=== PATIENT | male | born 1975 | race Caucasian/White ===

== ENCOUNTER 2018-01-20 11:28 | Emergency (ER) | payer OTHER ==
[~2018-01-20] VITALS: Ht 165.1 cm; Wt 95.2 kg
[~2018-01-20 11:28] MED LIST: ATEN25 PO; CEPH500 PO; FAMO20 PO; HYDACE5 PO
[2018-01-20] MEDS ORDERED: METO50ER PO (12:17)
[2018-01-20] MEDS ORDERED: Naprosyn500 MG PO (12:53)
== END 2018-01-20 13:09 | disposition home or self-care (01) ==
LOC: ER 11:28
DX: M54.9 Dorsalgia, unspecified (principal); Z79.899 Other long term (current) drug therapy; Z79.1 Long term (current) use of non-steroidal anti-inflammatories (NSAID); V59.9XXA Occupant (driver) (passenger) of pick-up truck or van injured in unspecified traffic accident, initial encounter; Y92.481 Parking lot as the place of occurrence of the external cause
CPT/HCPCS: 96372; 99283; J1885

== ENCOUNTER 2018-12-07 09:54 | Day surgery (SDC) | payer OTHER ==
[~2018-12-07] VITALS: Ht 165.1 cm; Wt 91.6 kg
[~2018-12-07 09:54] MED LIST changes: +METO50ER PO; +Naprosyn500 MG PO; +SERT50 PO
--- NOTE | 2018-12-07 10:24 | NUR ---
12/07/18 Carrol Aguila MONITOR INTACT WITH CONTINUOUS PULSE OXIMETRY AND INTERMITTENT BP. PATIENT CONFIRMS NPO STATUS AND AGREES WITH SCHEDULED PROCEDURE. History, Chart, Medications and Allergies reviewed before start of procedure. O2 VIA N/C INTACT THROUGHOUT SEDATION/PROCEDURE. 3-LEAD EKG REVIEWED WITH PHYSICIAN PRIOR TO START OF PROCEDURE. PATIENT DETERMINED TO BE ASA APPROPRIATE FOR PROPOFOL SEDATION PRIOR TO START OF PROCEDURE BY DR. GARSIA. HURRICAINE SPRAY TO OROPHARYX. Bite Block Placed.
--- NOTE | 2018-12-07 11:27 | NUR ---
PT TOLERATED PO FLUIDS. RX FOR OMEPROZOLE CALLED TO [facility]. ATTEMPTING TO CONTACT PT RIDE HOME. REVIEWED DC INSTRUCTIONS. IV DC'D INTACT.
== END 2018-12-07 22:42 | disposition home or self-care (01) ==
LOC: ORSCMMR 09:54 → ORD 11:00 → ORSCMMR 11:00
PROVIDERS: Internal Medicine Gastroenterology
PROC: 0DB58ZX Excision of Esophagus, Via Natural or Artificial Opening Endoscopic, Diagnostic (ICD-10-PCS; principal; 2018-12-07 11:00)
PROC: 0DB68ZX Excision of Stomach, Via Natural or Artificial Opening Endoscopic, Diagnostic (ICD-10-PCS; principal; 2018-12-07 11:00)
PROC: 0DB48ZX Excision of Esophagogastric Junction, Via Natural or Artificial Opening Endoscopic, Diagnostic (ICD-10-PCS; principal; 2018-12-07 11:00)
DX: R13.14 Dysphagia, pharyngoesophageal phase (principal); K21.9 Gastro-esophageal reflux disease without esophagitis; K22.10 Ulcer of esophagus without bleeding; K44.9 Diaphragmatic hernia without obstruction or gangrene; F32.9 Major depressive disorder, single episode, unspecified; Z79.899 Other long term (current) drug therapy
CPT/HCPCS: 88305; 88342; J7120

== ENCOUNTER → 2019-09-01 | Outpatient (CLI) | payer OTHER ==
[2019-09-01 14:24] LABS: Anion Gap 6 mmol/L (6-16); Blood Urea Nitrogen 17 mg/dL (8-24); Bun/Creatinine Ratio 21.1 (12.0-20.0); CO2, Blood 25 mmol/L (21-32); Chloride, Blood 110 mmol/L (98-108); Creatinine, Blood 0.81 mg/dL (0.60-1.20); Glomerular Filtration Rate >60 (60-); Glucose, Blood 115 mg/dL (70-99); Potassium, Blood 3.9 mmol/L (3.5-5.5); Sodium, Blood 141 mmol/L (136-145)
== END | disposition home or self-care (01) ==
LOC: LAB 11:00 → LAB SHORT 11:00 → LAB FUT 08-30 17:30 → EDSTATUS 08-30 17:30
PROVIDERS: Physician Assistant
DX: I10 Essential (primary) hypertension (principal)
CPT/HCPCS: 80048

== ENCOUNTER 2020-05-29 20:46 | Emergency (ER) | payer OTHER ==
[~2020-05-29] VITALS: Ht 165.1 cm; Wt 95.7 kg
[2020-05-29] MEDS ORDERED: Keflex500 MG PO (21:10)
== END 2020-05-29 21:45 | disposition home or self-care (01) ==
LOC: ER 20:46
DX: L03.116 Cellulitis of left lower limb (principal); Z79.899 Other long term (current) drug therapy
CPT/HCPCS: 90471; 90714; 99282-25; A9270-GY

== ENCOUNTER 2020-07-31 00:27 | Day surgery (SDC) | payer OTHER ==
[~2020-07-31 00:27] MED LIST changes: +Keflex500 MG PO
== END 2020-07-31 23:22 | disposition home or self-care (01) ==
LOC: WOUND 00:27
DX: L97.821 Non-pressure chronic ulcer of other part of left lower leg limited to breakdown of skin (principal)
CPT/HCPCS: G0463

== ENCOUNTER 2020-08-10 00:16 | Day surgery (SDC) | payer OTHER | END 2020-08-10 22:55 | disposition home or self-care (01) | LOC: WOUND 00:16 | DX: L97.821 Non-pressure chronic ulcer of other part of left lower leg limited to breakdown of skin (principal) | CPT/HCPCS: G0463 ==

== ENCOUNTER 2021-01-24 18:23 | Emergency (ER) | payer OTHER ==
[~2021-01-24] VITALS: Ht 165.1 cm; Wt 95.2 kg
[2021-01-24 18:58] LABS: BASOPHILS ABSOLUTE AUTO 0.05 K/mm3 (0.00-0.23); BASOPHILS PERCENT AUTO 0 % (0-2); EOSINOPHILS ABSOLUTE AUTO 0.19 K/mm3 (0.00-0.68); EOSINOPHILS PERCENT AUTO 2 % (0-6); Hematocrit 46.1 % (37.0-53.0); Hemoglobin 15.6 g/dL (13.5-17.5); IMMATURE GRAN ABSOLUTE AUTO 0.04 K/mm3 (0.00-0.10); IMMATURE GRAN PERCENT AUTO 0 % (0-1); LYMPHOCYTES ABSOLUTE AUTO 2.55 K/mm3 (0.84-5.20); LYMPHOCYTES PERCENT AUTO 22 % (21-46); MONOCYTES ABSOLUTE AUTO 0.84 K/mm3 (0.16-1.47); MONOCYTES PERCENT AUTO 7 % (4-13); Mean Corpuscular HGB 29.9 pg (26.0-34.0); Mean Corpuscular HGB Conc 33.8 g/dL (31.5-36.5); Mean Corpuscular Volume 89 fL (80-100); Mean Platelet Volume 10.5 fL (9.1-12.4); NEUTROPHILS ABSOLUTE AUTO 7.89 K/mm3 (1.96-9.15); NEUTROPHILS PERCENT AUTO 68 % (41-73); Platelet Count 241 K/mm3 (150-400); RDW Coefficient Variation 12.4 % (11.7-14.2); RDW Standard Deviation 40.3 fL (35.1-46.3); Red Blood Cell Count 5.21 M/mm3 (4.30-5.90); White Blood Cell Count 11.56 K/mm3 (4.00-11.30)
[2021-01-24 19:17] LABS: Alanine Aminotransfer (ALT/SGP 37 U/L (12-78); Alk Phos 82 U/L (50-136); Anion Gap 6 mmol/L (6-16); Aspartate Aminotrans (AST/SGOT 23 U/L (12-37); Bilirubin, Total 0.6 mg/dL (0.1-1.0); Blood Urea Nitrogen 23 mg/dL (8-24); Bun/Creatinine Ratio 21.9 (12.0-20.0); CO2, Blood 24 mmol/L (21-32); Chloride, Blood 110 mmol/L (98-108); Creatinine, Blood 1.05 mg/dL (0.60-1.20); Glomerular Filtration Rate >60 (60-); Glucose, Blood 107 mg/dL (70-99); Potassium, Blood 3.7 mmol/L (3.5-5.5); Sodium, Blood 140 mmol/L (136-145)
[2021-01-24] MEDS ORDERED: LOSA25 PO (22:32)
[2021-01-25 00:28] LABS: Troponin I <0.015 ng/mL (0.000-0.040)
[2021-01-25] MEDS ORDERED: AMOCLA875 PO (01:30)
== END 2021-01-25 02:07 | disposition home or self-care (01) ==
LOC: ER 18:23
PROVIDERS: Physician Assistant
DX: J18.9 Pneumonia, unspecified organism (principal); I10 Essential (primary) hypertension; Z79.899 Other long term (current) drug therapy
CPT/HCPCS: 36415; 71045; 80053; 84484; 85025; 93005; 93010; 99285-25; A9270

== ENCOUNTER → 2023-02-19 | Outpatient (CLI) | payer OTHER ==
[~2023-02-19] MED LIST changes: +AMOCLA875 PO; +LOSA25 PO
[2023-02-19 09:51] LABS: Hematocrit 38.1 % (37.0-53.0); Hemoglobin 13.5 g/dL (13.5-17.5); Mean Corpuscular HGB 33.3 pg (26.0-34.0); Mean Corpuscular HGB Conc 35.4 g/dL (31.5-36.5); Mean Corpuscular Volume 94 fL (80-100); RDW Coefficient Variation 12.7 % (11.7-14.2); RDW Standard Deviation 43.9 fL (35.1-46.3); Red Blood Cell Count 4.06 M/mm3 (4.30-5.90); White Blood Cell Count 4.04 K/mm3 (4.00-11.30)
[2023-02-19 10:03] LABS: Albumin, Blood 3.4 g/dL (3.4-5.0); Albumin/Globulin Ratio 0.9 (0.8-1.8); Bilirubin, Total 0.3 mg/dL (0.1-1.0); Bun/Creatinine Ratio 22.7 (12.0-20.0); Calcium, Blood 8.9 mg/dL (8.5-10.1); Creatinine, Blood 0.97 mg/dL (0.60-1.20); Globulin, Blood 3.9 g/dL (2.2-4.0); Potassium, Blood 4.1 mmol/L (3.5-5.5); Total Protein, Blood 7.3 g/dL (6.4-8.2)
[2023-02-19 10:43] LABS: Mean Platelet Volume 9.9 fL (9.1-12.4); Platelet Count 123 K/mm3 (150-400)
[2023-02-19 10:51] LABS: BASOPHILS PERCENT MAN 0 % (0-2); EOSINOPHILS ABSOLUTE MAN 0.28 K/mm3 (0.00-0.68); EOSINOPHILS PERCENT MAN 7 % (0-6); LYMPHOCYTES ABSOLUTE MAN 0.32 K/mm3 (0.84-5.20); LYMPHOCYTES PERCENT MAN 8 % (21-46); MONOCYTES ABSOLUTE MAN 0.44 K/mm3 (0.16-1.47); MONOCYTES PERCENT MAN 11 % (4-13); MYELOCYTE ABSOLUTE MAN 0.04 K/mm3 (0.00-0.00); MYELOCYTE PERCENT MAN 1 % (0-0); NEUTROPHILS ABSOLUTE MAN 2.94 K/mm3 (1.96-9.15); SEG NEUTROPHILS PERCENT MAN 73 % (41-73); TOTAL CELLS COUNTED 100
== END | disposition home or self-care (01) ==
LOC: LAB SHORT 09:46
PROVIDERS: Chiropractor
DX: R10.13 Epigastric pain (principal)
CPT/HCPCS: 80053; 83690; 85025

== ENCOUNTER → 2023-06-26 | Outpatient (CLI) | payer OTHER ==
[~2023-06-26] MED LIST changes: +ALBU90OI; +FLUT1DIS5 INH; +TIOT18 INH
[2023-06-26 09:34] LABS: BASOPHILS ABSOLUTE AUTO 0.06 K/mm3 (0.00-0.23); BASOPHILS PERCENT AUTO 1 % (0-2); EOSINOPHILS ABSOLUTE AUTO 0.26 K/mm3 (0.00-0.68); EOSINOPHILS PERCENT AUTO 4 % (0-6); Hematocrit 39.8 % (37.0-53.0); Hemoglobin 13.3 g/dL (13.5-17.5); IMMATURE GRAN ABSOLUTE AUTO 0.06 K/mm3 (0.00-0.10); IMMATURE GRAN PERCENT AUTO 1 % (0-1); LYMPHOCYTES ABSOLUTE AUTO 0.86 K/mm3 (0.84-5.20); LYMPHOCYTES PERCENT AUTO 13 % (21-46); MONOCYTES ABSOLUTE AUTO 0.52 K/mm3 (0.16-1.47); MONOCYTES PERCENT AUTO 8 % (4-13); Mean Corpuscular HGB 31.7 pg (26.0-34.0); Mean Corpuscular HGB Conc 33.4 g/dL (31.5-36.5); Mean Corpuscular Volume 95 fL (80-100); Mean Platelet Volume 9.9 fL (9.1-12.4); NEUTROPHILS PERCENT AUTO 73 % (41-73); Platelet Count 200 K/mm3 (150-400); RDW Coefficient Variation 14.9 % (11.7-14.2); Red Blood Cell Count 4.19 M/mm3 (4.30-5.90); White Blood Cell Count 6.46 K/mm3 (4.00-11.30)
[2023-06-26 10:59] LABS: Albumin, Blood 3.4 g/dL (3.4-5.0); Albumin/Globulin Ratio 0.7 (0.8-1.8); Bilirubin, Total 0.3 mg/dL (0.1-1.0); Bun/Creatinine Ratio 18.5 (12.0-20.0); Calcium, Blood 8.6 mg/dL (8.5-10.1); Creatinine, Blood 1.19 mg/dL (0.60-1.20); Globulin, Blood 4.7 g/dL (2.2-4.0); Potassium, Blood 3.9 mmol/L (3.5-5.5); Total Protein, Blood 8.1 g/dL (6.4-8.2)
== END | disposition home or self-care (01) ==
LOC: LAB SHORT 08:20 → LAB 08:20
PROVIDERS: Internal Medicine Hematology & Oncology
DX: C34.90 Malignant neoplasm of unspecified part of unspecified bronchus or lung (principal)
CPT/HCPCS: 80053; 85025

== ENCOUNTER → 2024-08-26 | Outpatient (CLI) | payer OTHER ==
[~2024-08-26] MED LIST changes: +SERT100 PO
== END | disposition home or self-care (01) ==
LOC: LAB SHORT 11:05 → LAB 11:05
DX: R79.89 Other specified abnormal findings of blood chemistry (principal)
CPT/HCPCS: 84439

== ENCOUNTER → 2024-10-11 | Outpatient (CLI) | payer OTHER | LOC: LAB SHORT 15:05 → LAB 15:05 | DX: E03.9 Hypothyroidism, unspecified (principal) | CPT/HCPCS: 84443 ==

== ENCOUNTER → 2025-05-31 | Outpatient (CLI) | payer MEDICARE, OTHER ==
[2025-05-31 15:26] LABS: BASOPHILS ABSOLUTE AUTO 0.05 K/mm3 (0.00-0.23); BASOPHILS PERCENT AUTO 1 % (0-2); EOSINOPHILS ABSOLUTE AUTO 0.18 K/mm3 (0.00-0.68); EOSINOPHILS PERCENT AUTO 3 % (0-6); Hematocrit 43.9 % (37.0-53.0); Hemoglobin 14.7 g/dL (13.5-17.5); IMMATURE GRAN ABSOLUTE AUTO 0.09 K/mm3 (0.00-0.10); IMMATURE GRAN PERCENT AUTO 1 % (0-1); LYMPHOCYTES ABSOLUTE AUTO 1.39 K/mm3 (0.84-5.20); LYMPHOCYTES PERCENT AUTO 20 % (21-46); MONOCYTES ABSOLUTE AUTO 0.71 K/mm3 (0.16-1.47); MONOCYTES PERCENT AUTO 10 % (4-13); Mean Corpuscular HGB Conc 33.5 g/dL (31.5-36.5); Mean Corpuscular Volume 90 fL (80-100); NEUTROPHILS ABSOLUTE AUTO 4.68 K/mm3 (1.96-9.15); NEUTROPHILS PERCENT AUTO 66 % (41-73); NRBC ABSOLUTE 0.00 K/mm3 (0.00-0.02); NRBC Auto 0.0 /100 WBC (0.0-0.2); Platelet Count 217 K/mm3 (150-400); RDW Coefficient Variation 12.9 % (11.7-14.2); RDW Standard Deviation 42.1 fL (35.1-46.3)
[2025-05-31 17:10] LABS: Alanine Aminotransfer (ALT/SGP 27 U/L (12-78); Albumin, Blood 3.6 g/dL (3.4-5.0); Albumin/Globulin Ratio 1.0 (0.8-1.8); Anion Gap 7 mmol/L (3-11); Aspartate Aminotrans (AST/SGOT 16 U/L (12-37); Bilirubin, Total 0.7 mg/dL (0.1-1.0); Blood Urea Nitrogen 18 mg/dL (8-24); CHOL/HDL RATIO 2.3; CO2, Blood 27 mmol/L (21-32); Calcium, Blood 8.9 mg/dL (8.5-10.1); Chloride, Blood 107 mmol/L (98-108); Cholesterol 199 mg/dL (50-200); Creatinine, Blood 0.91 mg/dL (0.60-1.20); Globulin, Blood 3.6 g/dL (2.2-4.0); Glucose, Blood 100 mg/dL (70-99); HDL Cholesterol 88 mg/dL (>39); LDL/HDL RATIO 1.1; Low Density Lipoprotein Chol 96 mg/dL (0-110); Potassium, Blood 3.9 mmol/L (3.5-5.5); Sodium, Blood 137 mmol/L (136-145); Thyroid Stimulating Hormone 5.310 uIU/mL (0.360-4.800); Total Protein, Blood 7.2 g/dL (6.4-8.2); Triglycerides 73 mg/dL (30-160); Very Low Density Lipoprot Chol 14 mg/dL (6-32)
== END ==
LOC: LAB 09:50 → LAB SHORT 09:50
PROVIDERS: Physician Assistant
DX: Z51.81 Encounter for therapeutic drug level monitoring (principal); Z79.899 Other long term (current) drug therapy
CPT/HCPCS: 80053; 80061; 82306; 83036; 84443; 85025

== ENCOUNTER → 2025-07-19 | Outpatient (CLI) | payer MEDICARE, OTHER | LOC: LAB 16:25 → LAB SHORT 16:25 | DX: E03.9 Hypothyroidism, unspecified (principal) | CPT/HCPCS: 84443 ==